=== PATIENT | female | born 1975 | race Two or more races ===

== ENCOUNTER 2018-10-12 11:58 | Emergency (ER) | payer MEDICAID ==
[~2018-10-12] VITALS: Ht 162.6 cm; Wt 56.7 kg
--- NOTE | 2018-10-12 12:00 | NUR ---
PT BIB SELF. COMPLAINING OF "I FEEL UNCOMFORTABLE WHEN I PEE". PT AOX4. AMBULATORY W.STEADY GAIT. NO SOB NOTED. NO ACUTE DISTRESS NOTED. NO PAIN NOTED. WILL CONTINUE TO MONITOR. AWAITING MD MARISCAL.
--- NOTE | 2018-10-12 12:06 | NUR ---
URINE COLLECTED AND SENT TO LAB FOR ANALYSIS.
[2018-10-12 12:17] VITALS: BP 128/68
[2018-10-12 12:32] LABS: APPEARANCE,URINE Clear (CLEAR); BILIRUBIN,URINE Negative (NEGATIVE); BLOOD, URINE Negative Ery/uL (NEGATIVE); COLOR,URINE Yellow (YELLOW); KETONES,URINE Negative (NEGATIVE); LEUKOCYTE ESTERASE ,URINE Moderate (NEGATIVE); NITRITE, URINE Negative (NEGATIVE); PH,URINE 5.5 (5.0-8.0); PROTEIN,URINE Negative (NEGATIVE); UGLUCOSE Negative (NEGATIVE); UROBILINOGEN,URINE 0.2 EU/dL (0.2)
[2018-10-12 12:35] LABS: BACTERIA,URINE 2+ /HPF (None Seen); RBC,URINE NONE SEEN /HPF (0-2); SQUAMOUS EPITHELIAL CELL,UR Few /HPF (None Seen)
== END 2018-10-12 12:58 | disposition home or self-care (01) ==
LOC: ER 12:01
DX: N39.0 Urinary tract infection, site not specified (principal); M54.9 Dorsalgia, unspecified
CPT/HCPCS: 81000-TC; 84703-TC; 87086-TC; 87186-TC; A4606; Z7610

== ENCOUNTER 2022-06-14 14:18 | Emergency (ER) | payer MEDICAID ==
[~2022-06-14] VITALS: Ht 154.9 cm; Wt 50.8 kg
[2022-06-14 14:40] VITALS: BP 109/64
--- NOTE | 2022-06-14 14:47 | NUR ---
URINE COLLECTED AND SENT TO LAB
[2022-06-14] MEDS ORDERED: NITR100C6 PO (14:57)
--- NOTE | 2022-06-14 15:02 | NUR ---
Patient discharged to home in stable condition. Written and verbal after care instructions given. Patient verbalizes understanding of instruction.
[2022-06-14 15:17] LABS: BILIRUBIN,URINE NEGATIVE (NEGATIVE); COLOR,URINE YELLOW (YELLOW); LEUKOCYTE ESTERASE ,URINE TRACE (NEGATIVE); NITRITE, URINE NEGATIVE (NEGATIVE); PH,URINE 5.5 (5.0-8.0); PROTEIN,URINE NEGATIVE (NEGATIVE); UGLUCOSE NEGATIVE (NEGATIVE); UROBILINOGEN,URINE 0.2 EU/dL (0.2)
[2022-06-14 16:12] LABS: BACTERIA,URINE RARE /HPF (None Seen)
[2022-06-14 16:13] LABS: MUCUS,URINE Few /LPF (None Seen)
== END 2022-06-14 15:02 | disposition home or self-care (01) ==
LOC: ER 14:20
DX: N39.0 Urinary tract infection, site not specified (principal); Z60.2 Problems related to living alone
CPT/HCPCS: 81001; 84703-TC; 87086-TC

== ENCOUNTER 2024-02-01 12:57 | Emergency (ER) | payer MEDICAID ==
[~2024-02-01] VITALS: Ht 154.9 cm; Wt 49.9 kg
[~2024-02-01 12:57] MED LIST: NITR100C6 PO
[2024-02-01 13:18] VITALS: TEMP 98
[2024-02-01] MEDS ORDERED: HYDR-4303 PO (13:27)
[2024-02-01] MEDS ORDERED: CARI350T PO (13:27)
[2024-02-01] MEDS ORDERED: KETOROLAC TROMETHAMINE INJ 30 MG/ML VIAL ONE (13:33)
[2024-02-01] MEDS: KETOROLAC TROMETHAMINE INJ 30 MG/ML VIAL IM ONE (13:37)
[2024-02-01 13:49] VITALS: BP 125/76; O2SAT 97
== END 2024-02-01 13:49 | disposition home or self-care (01) ==
LOC: ER 13:01
DX: M54.50 Low back pain, unspecified (principal); Z79.899 Other long term (current) drug therapy; Z60.2 Problems related to living alone
CPT/HCPCS: 99283; 96372; J1885

== ENCOUNTER 2024-03-30 13:20 | Emergency (ER) | payer MEDICAID ==
[~2024-03-30] VITALS: Ht 154.9 cm; Wt 48.5 kg
[~2024-03-30 13:20] MED LIST changes: +CARI350T PO; +HYDR-4303 PO
[2024-03-30 14:10] LABS: BASOPHILS # (AUTO) 0.1 K/uL (0.0-0.2); BASOPHILS % (AUTO) 0.5 % (0.0-2.0); EOSINOPHILS # (AUTO) 0.5 K/uL (0.0-0.7); EOSINOPHILS % (AUTO) 4.9 % (0.0-6.0); HEMATOCRIT 38 % (33-45); HEMOGLOBIN 12.7 g/dL (11.5-14.8); LYMPHOCYTES # (AUTO) 1.7 K/uL (0.8-4.8); LYMPHOCYTES % (AUTO) 15.5 % (20.0-44.0); MEAN CORPUSCULAR HEMOGLOBIN 31 PG (26.0-33.0); MEAN CORPUSCULAR HGB CONC 33 g/dl (31.0-36.0); MEAN CORPUSCULAR VOLUME 93 fL (82-100); MONOCYTES # (AUTO) 0.7 K/uL (0.1-1.30); MONOCYTES % (AUTO) 6.2 % (2.0-12.0); NEUTROPHILS # (AUTO) 8.2 K/uL (1.8-8.9); NEUTROPHILS % (AUTO) 72.9 % (43.0-81.0); PLATELET COUNT (AUTO) 307 K/uL (150-450); RED CELL DISTRIBUTION WIDTH 13.7 % (11.5-15.0); WHITE BLOOD COUNT (AUTO) 11.2 K/uL (4.3-11.0)
[2024-03-30 14:22] LABS: ALBUMIN 3.9 g/dL (3.4-5.0); BILIRUBIN,DIRECT 0.1 mg/dL (0.0-0.2); BILIRUBIN,TOTAL 0.8 mg/dL (0.2-1.0); CREATININE 0.8 mg/dL (0.6-1.3); POTASSIUM 4.1 mmol/L (3.5-5.1); TOTAL PROTEIN, SERUM 7.9 g/dL (6.4-8.2)
[2024-03-30] MEDS ORDERED: KETOROLAC TROMETHAMINE 15 MG/ML VIAL ONE (14:25)
[2024-03-30] MEDS: IV NS 0.9% 500 ML BAG IV ONE (14:26)
[2024-03-30] MEDS: KETOROLAC TROMETHAMINE 15 MG/ML VIAL IV ONE (14:27)
[2024-03-30 14:34] LABS: APPEARANCE,URINE BLOODY (CLEAR)
[2024-03-30 14:35] LABS: COLOR,URINE RED (YELLOW)
[2024-03-30 15:26] LABS: BACTERIA,URINE 2+ /HPF (None Seen); RBC,URINE TOO NUMEROUS TO COUN /HPF (0-2); SQUAMOUS EPITHELIAL CELL,UR 0-2 /HPF (None Seen)
[2024-03-30] MEDS ORDERED: IBUP-1953 PO (15:36)
[2024-03-30] MEDS ORDERED: CEPH-570 PO (15:36)
[2024-03-30 15:55] VITALS: BP 127/88; TEMP 98.2; O2SAT 98
== END 2024-03-30 15:56 | disposition home or self-care (01) ==
LOC: ER 13:25
DX: N39.0 Urinary tract infection, site not specified (principal); Z87.39 Personal history of other diseases of the musculoskeletal system and connective tissue; Z60.2 Problems related to living alone
CPT/HCPCS: 99285; 74176; 96374; 96361; 85025; 80048; 87086; 83690; 80076; 81001; 36415; J7040; J1885